=== PATIENT | female | born 1955 | race Caucasian/White ===

== ENCOUNTER 2019-02-21 09:53 | Day surgery (SDC) | payer MEDICARE, OTHER ==
[2019-02-17 16:20] VITALS: Ht 160 cm; Wt 100.0 kg
[2019-02-21] VITALS (23 sets, daily range): BP systolic 117–154; BP diastolic 50–85; PULSE 66–80; RESP 18–29
[~2019-02-21] VITALS: Ht 160 cm; Wt 100.0 kg
[~2019-02-21 09:53] MED LIST: DIAZEPAM 5 MG TAB PO SCH; DIPHENHYDRAMINE 50 MG CAP PO SCH; FAMOTIDINE 20 MG TAB PO SCH; SOD CHLORIDE 0.45% 1,000 ML IV SCH
[2019-02-21] MEDS ORDERED: CARV12.579 PO (10:30)
[2019-02-21] MEDS ORDERED: HYDR-3672 PO (10:30)
[2019-02-21] MEDS ORDERED: FURO20TA3 PO (10:31)
[2019-02-21] MEDS ORDERED: PRAV40TA76 PO (10:31)
[2019-02-21] MEDS ORDERED: GABA400C14 PO (10:32)
[2019-02-21] MEDS ORDERED: FLUO10CA26 PO (10:32)
[2019-02-21] MEDS ORDERED: TRAM50TA PO (10:32)
[2019-02-21] MEDS ORDERED: LANT3I SC (10:33)
[2019-02-21] MEDS ORDERED: INSU100I12 SQ (10:35)
[2019-02-21] MEDS ORDERED: HEPARIN 1000 UNITS/ML 10 ML INJ ONE (13:04)
[2019-02-21] MEDS ORDERED: IODIXANOL LOCM 100 ML BTL ONE (13:04)
[2019-02-21] MEDS ORDERED: LIDOCAINE 1% (MDV) 20 ML INJ ONE (13:04)
[2019-02-21] MEDS ORDERED: NITROGLYCERIN (IC) 100 MCG/ML INJ ONE (13:05)
[2019-02-21] MEDS ORDERED: FENTAnyl 50 MCG/ML VIAL ONE (13:05)
[2019-02-21] MEDS ORDERED: VERAPAMIL 5 MG INJ ONE (13:05)
[2019-02-21] MEDS ORDERED: MIDAZOLAM 1 MG/ML 2 ML INJ ONE (13:05)
[2019-02-21] MEDS ORDERED: SOD CHLORIDE 0.9% 500 ML ONE (14:24)
[2019-02-21] MEDS ORDERED: SOD CHLORIDE 0.9% 1,000 ML IV SCH (14:29)
--- NOTE | 2019-02-21 14:29 | SIPON ---
Date/Time of Note Date/Time of Note DATE: 02/21/19 TIME: 14:28 Operative Report Preoperative Diagnosis 1.chest pain 2.abnl mpi Postoperative Diagnosis 1.non-obstructuve cad Operation/Procedure Performed 1.[facility] Surgeon see signature line cardiovascular physician assistant 1.Emil Anesthesia: moderate sedation Estimated blood loss: minimal Transfusion Required none Specimen none Grafts/Implants none Complications none MADAI LORA Feb 21, 2019 14:29
[2019-02-21] MEDS ORDERED: ONDANSETRON 4 MG INJ IV PRN (14:30)
[2019-02-21] MEDS ORDERED: AL HYDROX/MG HYDROX/SIMETH 30 ML CUP PO PRN (14:30)
[2019-02-21] MEDS ORDERED: morphine 2 MG INJ IV PRN (14:30)
[2019-02-21] MEDS ORDERED: ACETAMINOPHEN 325 MG TAB PO PRN (14:30)
--- NOTE | 2019-02-21 16:44 | CARRPT ---
DATE OF PROCEDURE: 02/21/2019 TYPE OF PROCEDURES: 1. Left heart catheterization. 2. Coronary angiography. 3. Measurement of left ventricular end-diastolic pressure and LV gram. 4. Moderate sedation. ATTENDING PHYSICIAN: Madai Guevara MD REFERRING PHYSICIAN: Self-referred. INDICATION: Chest pain refractory to medical therapy with positive stress test findings. TYPE OF ANESTHESIA: Conscious and local. BRIEF HISTORY: Ms. Alissa Stinson is a 63-year-old female with history of hypertension and dyslipidem ia, who initially presented with complaints of substernal chest pain and subsequently underwent a car diac stress test revealing positive ischemia. The patient subsequently was placed in ascending medic al therapy but continued to have chest pain and now has been brought to the process laboratory specialist in order to asse ss possibility of significant obstructive coronary artery disease lending to symptoms of chest pain a nd subsequent positive stress test findings. DESCRIPTION OF PROCEDURE: After informed consent was obtained, the patient was brought to the [facility] cardiac catheterization lab where her right radial area was prepped and draped in sterile fashion. A 2% lidocaine was infiltrated into right radial area in order to achieve adequ ate anesthesia. Using the modified Seldinger technique, the radial artery was cannulated and a 6-[facility] arterial sheath was placed. A 6-Romansh JL3.5 catheter was used to cannulate the left main fuentes ry ostium. With contrast injection, multiple views of left coronary system were obtained. A JL3.5 w as removed over a guidewire and a JR4 was used to cannulate the right coronary arterial ostium. With contrast injection, multiple views of the right coronary system were obtained. JL4 was removed over a guidewire and 6-Romansh pigtail was passed down the ascending aorta and placed in LV. LVEDP was me asured and pullback across the aortic valve to assess for significant gradient, which there was not a nd removed. Subsequently, this completed the procedure. The patient's sheath was removed. TR band was applied. There were no noted complications. FINDINGS: Coronary angiography: Right coronary proximally is 3 mm, no significant focal stenoses, d ominant vessel, gives off a 2 mm PDA with no significant focal stenoses and 2.5 mm posterolateral bra nch with no significant focal stenoses. Left main is short 4.5 mm, no significant focal stenoses. C ircumflex proximally is 3.5 mm vessel, no significant focal stenoses in this portion, 3 mid branching obtuse marginal with the inferior branch being the largest 2.5 mm with a 20% mid body stenosis. It is a codominant vessel and therefore gives off a left-sided PDA and posterolateral branch, each appro ximately 2 mm with no significant focal stenoses. The LAD proximally is a 3.5 mm vessel and in its m idportion has mild luminal irregularities approximately 20%. Remainder of the LAD thereafter is free from significant focal stenoses. There is proximal branching diagonal 2 mm with 20% stenosis. Left ventriculogram revealed a left ventricular ejection fraction of 60% to 65%. Left end diastolic pressure of 14 to 16, no significant aortic stenosis by gradient, 1+ mitral regurgitation. TOTAL FLUOROSCOPY TIME: 3 minutes. TOTAL CONTRAST: 55 mL. IMPRESSION: 1. Very mild nonobstructive coronary artery disease. 2. Preserved left ventricular systolic function. 3. Normal left heart filling pressures. 4. No significant aortic stenosis by gradient. 5. A 1+ mitral regurgitation. RECOMMENDATIONS: In light of procedure findings at this time, we would: 1. Maximize medical management. 2. Aggressive risk factor reduction. 3. The patient will be readmitted to same day surgery center for post-cath observation and continued management of symptoms with probable discharge later this afternoon. Dictated By: MADAI MORATAYA/SHELLY Conf#: [id number] DID#: [id number]
== END 2019-02-21 17:44 | disposition home or self-care (01) ==
LOC: SDS 09:53
PROVIDERS: ATTEND Internal Medicine
DX: I25.10 Atherosclerotic heart disease of native coronary artery without angina pectoris (principal); R94.39 Abnormal result of other cardiovascular function study; I10 Essential (primary) hypertension; E78.5 Hyperlipidemia, unspecified
CPT/HCPCS: 71045; 80053; 80061; 82962; 85025; 85610; 85730; 93005; 93458; C1887; J1644; J2250; J3010; J7040; Q9967